=== PATIENT | male | born 1965 | race African-American/Black ===

== ENCOUNTER 2019-12-26 08:38 | Emergency (ER) | payer MEDICAID ==
[~2019-12-26] VITALS: Ht 180.3 cm; Wt 106.0 kg
[2019-12-26 09:02] VITALS: BP 150/99
[2019-12-26] MEDS ORDERED: KETOROLAC 30MG/ML VIAL IM ONE (09:45)
== END 2019-12-26 10:50 | disposition home or self-care (01) ==
LOC: ER 08:38
DX: M25.461 Effusion, right knee (principal); E11.9 Type 2 diabetes mellitus without complications; Z98.890 Other specified postprocedural states
CPT/HCPCS: 73562; 96372; 99283; J1885

== ENCOUNTER 2020-01-05 10:38 | Emergency (ER) | payer MEDICAID ==
[~2020-01-05] VITALS: Ht 180.3 cm; Wt 102.0 kg
[2020-01-05 11:14] VITALS: BP 147/94
== END 2020-01-05 11:16 | disposition home or self-care (01) ==
LOC: ER 10:38
DX: M25.561 Pain in right knee (principal); M79.89 Other specified soft tissue disorders; R03.0 Elevated blood-pressure reading, without diagnosis of hypertension; E11.9 Type 2 diabetes mellitus without complications; Z91.19 Patient's noncompliance with other medical treatment and regimen
CPT/HCPCS: 99281; 99282